=== PATIENT | female | born 1940 | race Caucasian/White ===

== ENCOUNTER 2017-02-19 19:31 | Emergency (ER) | payer OTHER ==
--- NOTE | ~2017-02-19 | CR72 ---
[facility] A Service of [facility] RADIOLOGY TEXT RESULTS PATIENT: SHASTA WALLER LOCATION: [facility] : 42 UNIT #: [id number] AGE: [address]: Richi Kimbrough MD SEX: F ORDER DR: [id number] [facility] [address] [place], [place] [address] [id number] E MR#: [id number] Acc #: [id number] NAME: SHASTA WALLER. : 1940 SEX: F STUDY DATE/TIME: 02/19/2017 20:34 UNIT: [facility] ROOM: STUDY DESCRIPTION: CR Chest Single View Portable Attending Physician: Richi Kimbrough M.D. Ordering Physician: Richi Kimbrough M.D. Primary Care Physician: Tavia Kidd M.D. MEDICAL IMAGING REPORT This report is preliminary unless electronic signature is present EXAM Portable chest HISTORY Shortness of air and chest pain and congestion today. FINDINGS Minimal bibasilar linear atelectasis or scarring. No focal infiltrates. Mild cardiac enlargement. Pulmonary vascularity is within normal limits. Diffusely calcified thoracic aorta. No airspace infiltrates or effusions. IMPRESSION No acute findings and no active disease. Dictated by... Jaydon Suggs M.D. THIS IS AN ELECTRONICALLY VERIFIED REPORT Jaydon Suggs M.D. at 02/20/2017 5:28 PM LUIS/audrey TD: 02/20/2017 00:53 JOB #: [id number] MEDICAL IMAGING REPORT Page 1 of 1 COPY
[~2017-02-19 19:31] MED LIST: ACETAMINOPHEN PO; ALB/IPRATROPIUM/1 E1 INH; ALBUTEROL MININEB NEB; ALBUTEROL17 GM INH; ALDACTONE PO; AMARYL PO; AMPICILLIN PO; APAP325 M2 PO; ASPIRIN PO; ASPIRIN81 MG PO; ATENOLOL PO; ATRAC-TAIN TOP; ATROVENT NEB; BACLOFEN PO; BACLOFEN10 MG PO; BISACODYL10 MG/SUP3 PR; CALCIUM CARBONATE PO; CEFTIN PO; CHLORASEPTIC SPRAY PO; COREG PO; COREG3.125 MG PO; COUGH SYRU100 MG/5 M PO; COUMADIN PO; DARVOCET-N 1001 TAB PO; DOCUSATE SODIU100 MG PO; FAST RELIEF LAX10 MG PR; FENOFIBRATE200 M1 PO; FERROUS SULFATE PO; FLAGYL PO; FLONASE 0.05% N16 G1; FLONASE16 GM; FLORASTOR250 M1 PO; HYDROCHLOROTH12.5 M1 PO; IMDUR PO; IMDUR-ER30 M1 PO; IPRATROPIUM0.2 MG/ML NEB; IRON325 ( 65 ) PO; ISORDIL PO; KCL PO; KEFLEX PO; KLOR-CON SPRIN10 MEQ PO; LAMISIL PO; LASIX PO; LEVAQUIN PO; LEVOCETIRIZINE D5 MG PO; LIPITOR PO; MILK OF MAGNESIA PO; MIRALAX17 GM PO; MYLANTA; NASONEX17 GM; NEURONTIN PO; NITROGYLCERIN SUBLINGUAL; NORCO 7.5/325 T1 TAB PO; NOVOLIN R100 U/ML SUBQ; NYSTATIN-TRIAMC15 G1 TOP; NYSTATIN1 EAC1 MC; PHENERGAN PO; PHENERGAN W/CO120 ML PO; PLAVIX PO; POTASSIUM CHLO10 ME1 PO; PRAVACHOL80 MG PO; PRAVASTATIN SOD80 MG PO; PREDNISONE PO; PRILOSEC PO; PRILOSEC20 M1 PO; PROTONIX PO; REQUIP XL2 MG PO; REQUIP1 MG PO; REQUIP2 MG PO; ROBITUSSIN-DM120 ML PO; SENNA S TABLET1 TAB PO; SPIRIVA18 MCG INH; SYNTHROID PO; SYNTHROID25 MCG PO; TUMS PO; TYLENOL325 M1 PO; ULTRAM PO; VENTOLIN5 MG/ML IN; VITAMIN C PO; VITAMIN D PO; ZANTAC PO; ZOCOR PO; ZOLOFT PO; ZOLOFT50 MG PO; ZYRTEC5 M2 PO; [UNRECOGNIZED DRUG - OTHER]; [UNRECOGNIZED DRUG - OTHER] TOP
[2017-02-19] MEDS ORDERED: EFFEXOR37.5 MG PO (19:39)
[2017-02-19] MEDS ORDERED: SYNTHROID PO (19:39)
[2017-02-19] MEDS ORDERED: ROXANOL W/DR20 MG/ML PO ×2 (19:40→19:45)
[2017-02-19] MEDS ORDERED: DEXAMETHASONE4 MG PO (19:40)
[2017-02-19] MEDS ORDERED: LACTULOSE10 GM/152 PO (19:41)
[2017-02-19] MEDS ORDERED: LASIX PO (19:42)
[2017-02-19] MEDS ORDERED: LASIX80 MG PO (19:42)
[2017-02-19] MEDS ORDERED: HALOPERIDOL L2 MG/ML PO (19:43)
[2017-02-19] MEDS ORDERED: COMPAZINE10 M2 PO (19:44)
[2017-02-19] MEDS ORDERED: BACLOFEN10 MG PO (19:45)
[2017-02-19 20:38] LABS: POC - CKMB <1.0 ng/mL (0.0-7.9); POC - TROPONIN <0.05 ng/mL (<=0.05)
[2017-02-19 20:48] LABS: BASOPHIL# 0.1 X10e3 (0-0.3); EOSINOPHIL# 0.8 X10e3 (0-0.7); EOSINOPHIL% 8.7 % (0.0-7.0); HEMATOCRIT 39.7 % (35.0-45.0); HEMOGLOBIN 12.9 gm/dL (12.0-16.0); LYMPHOCYTE# 1.8 X10e3 (1.0-3.5); LYMPHOCYTE% 20.4 % (17.0-45.0); MEAN CELL VOLUME 83.9 FL (83-96); MEAN CORPUSCULAR HEMOGLOBIN 27.2 PG (28-34); MEAN CORPUSCULAR HGB CONC 32.5 g/dL (30-36); MONOCYTE# 0.6 X10e3 (0-1.0); MONOCYTE% 7.4 % (3.0-12.0); NEUTROPHIL# 5.4 X10e3 (1.5-7.1); NEUTROPHIL% 62.5 % (40-75); PLATELET COUNT 262 X10e3 (140-420); RED BLOOD COUNT 4.73 X10e (3.90-5.30); RED CELL DISTRIBUTION WIDTH 16.3 % (11.0-15.5); WHITE BLOOD COUNT 8.7 X10e3 (4.0-10.5)
[2017-02-19 20:49] LABS: DIFF IND NO
[2017-02-19 20:57] LABS: INR 0.9; PROTHROMBIN TIME (PATIENT) 9.9 SECONDS (9.6-11.5)
[2017-02-19 21:07] LABS: ALBUMIN SERUM 3.7 g/dL (3.5-5.0); BILIRUBIN, DIRECT 0.1 mg/dL (0.0-0.2); BILIRUBIN,INDIRECT 0.9 mg/dL (0.0-0.9); CALCIUM SERUM 8.9 mg/dL (8.4-10.2); CREATININE SERUM 0.6 mg/dL (0.6-1.4); GLOM FILT RATE Estimated 89.2 mL/min (>60); POTASSIUM 3.6 mmol/L (3.5-5.1)
== END 2017-02-19 23:00 | disposition home or self-care (01) ==
LOC: CED 19:31
PROVIDERS: Emergency Medicine
DX: R06.02 Shortness of breath (principal); E11.9 Type 2 diabetes mellitus without complications; I48.91 Unspecified atrial fibrillation; E78.5 Hyperlipidemia, unspecified; I10 Essential (primary) hypertension; F17.210 Nicotine dependence, cigarettes, uncomplicated; Z86.718 Personal history of other venous thrombosis and embolism; Z86.73 Personal history of transient ischemic attack (TIA), and cerebral infarction without residual deficits
CPT/HCPCS: 36415; 71010; 80048; 80076; 82553; 83605; 84484; 85025; 85610; 87040; 94640; 99284; J2930